=== PATIENT | female | born 1990 | race Hispanic/Latino ===

== ENCOUNTER 2023-12-29 15:31 | Outpatient (CLI) | payer OTHER | END 2023-12-29 15:32 | disposition home or self-care (01) | LOC: NAV RAD 15:31 | PROVIDERS: ATTEND Family Medicine | DX: M41.9 Scoliosis, unspecified (principal); M43.8X5 Other specified deforming dorsopathies, thoracolumbar region | CPT/HCPCS: 72040; 72072; 72100 ==